=== PATIENT | female | born 1960 | race Caucasian/White ===

== ENCOUNTER 2016-08-24 23:44 | Observation (INO) | payer BC ==
--- NOTE | ~2016-08-24 | HP ---
Unit #: [id number] #: [id number] Patient: NATALIIA PLAZA [id number] [facility] [address] [place], [place] [address] [id number] I MR#: [id number] NAME: NATALIIA PLAZA. ROOM: 333 Age: 56 Sex: F Admission Date: 08/25/2016 : 1960 Attending Physician: Nick Garcia M.D. Primary Care Physician: No Primary Care Physician HISTORY AND PHYSICAL CHIEF COMPLAINT Fatigue and short of breath. HISTORY OF PRESENT ILLNESS This is a 56-year-old female who has no previous cardiac history. She came yesterday because the last few days she is feeling fatigued and not feeling good. She took her blood pressure at home and blood pressure was 220 systolic. In the emergency room she also has a high blood pressure and she felt short of breath. She was given hydralazine 10 mg IV and Norvasc 10 mg p.o. Right now her blood pressure is 143. She is feeling better but has some headache. She denies orthopnea, PND, palpitations, or syncope. PAST MEDICAL HISTORY Positive for thyroidectomy. ALLERGIES None. MEDICATIONS None. FAMILY HISTORY Negative for premature CAD or hypertension. SOCIAL HISTORY She smokes a pack a day. She does not drink. REVIEW OF SYSTEMS All of the 12 point systems were reviewed and they are negative. PHYSICAL EXAMINATION GENERAL: She looks comfortable, not in any kind of distress. VITAL SIGNS: Heart rate is 80 right now, blood pressure 146/96. She is breathing at a respiratory rate of 16. HEENT: Eyes - conjunctivae normal. Pupils round and reactive. Oral mucosa is moist. No central cyanosis. NECK: No thyromegaly. Carotid upstroke is normal, no bruits. JVD is not elevated. CHEST: She has a few crackles at the bases. CARDIAC: She has a mild left parasternal lift. There is an S3 at the apex. No murmur. ABDOMEN: Soft, liver and spleen not enlarged. Abdominal aorta not Unit #: [id number] #: [id number] Patient: NATALIIA PLAZA palpable and guaiac test not indicated. EXTREMITIES: No pedal edema. 2+ bilateral femoral and dorsalis pedis pulses. There is no clubbing. SKIN: No rash or abnormal pigmentation. NEUROLOGIC: She is oriented x3, mood is normal, muscle tone in all extremities normal. DIAGNOSTIC STUDIES CARDIOLOGY STUDIES: EKG showing sinus rhythm with possible right atrial enlargement and left ventricular hypertrophy. ASSESSMENT 1. Malignant hypertension. 2. Acute congestive heart failure, which is probably related to her hypertension. 3. (1) EKG with possible with possible right atrial enlargement. 4. History of smoking. PLAN I will continue with Norvasc 10 mg p.o. daily. I will give a small dose of p.o. potassium because the potassium is low. I will also add lisinopril 10 mg p.o. daily and give a small dose of Lasix. I will do echo to assess her LV size and function. Probably she can go home later this afternoon or tomorrow morning. Dictated by Crystal Goff/dylan TD: 08/25/2016 11:31 JOB #: [id number] HISTORY AND PHYSICAL Page 1 of 1 X Nadeem Maldonado MD HISTORY AND PHYSICAL
--- NOTE | ~2016-08-24 | EKG ---
PATIENT: NATALIIA PLAZA UNIT #: [id number] Ventricular Rate: 101 BPM Atrial Rate: 101 BPM P-R Interval: 164 ms QRS Duration: 96 ms Q-T Interval: 388 ms QTC Calculation(Bezet): 503 ms P [place]: 58 degrees Calculated R [place]: 11 degrees Calculated T [place]: 37 degrees Diagnosis Line: Sinus tachycardia Diagnosis Line: Right atrial enlargement Diagnosis Line: Minimal voltage criteria for LVH, may be normal Diagnosis Line: variant Diagnosis Line: Borderline ECG Diagnosis Line: No previous ECGs available Diagnosis Line: Confirmed by CINDY MAY MD ([id number]) on Diagnosis Line: 08/25/2016 10:20:34 PM INTERPRETING MD: KIRSTIN
--- NOTE | ~2016-08-24 | CR72 ---
[facility] A Service of [facility] RADIOLOGY TEXT RESULTS PATIENT: NATALIIA PLAZA LOCATION: [facility] [id number] : [birth year] UNIT #: [id number] AGE: [address]: Nick Garcia MD SEX: F ORDER DR: [id number] [facility] [address] [place], [place] [address] [id number] I MR#: [id number] Acc #: [id number] NAME: NATALIIA PLAZA : 1960 SEX: F STUDY DATE/TIME: 08/24/2016 22:04 UNIT: [facility] ROOM: [id number] STUDY DESCRIPTION: CR Chest Single View Portable Attending Physician: Nick Garcia M.D. Ordering Physician: Willard Pérez M.D. Primary Care Physician: Primary Care Physician No MEDICAL IMAGING REPORT This report is preliminary unless electronic signature is present EXAM Chest x-ray, 08/24/2016 HISTORY 56-year-old female in the ED complaining of 2-day history of weakness and shortness of air. Hypertension is noted. TECHNIQUE AP portable upright chest x-ray. FINDINGS Mild cardiomegaly. Pulmonary vascularity is normal. The lungs appear clear. No visible pulmonary infiltrate or pleural effusion. IMPRESSION No active disease. Mild cardiomegaly. Dictated by... Kenny Schaefer M.D. THIS IS AN ELECTRONICALLY VERIFIED REPORT Kenny Schaefer M.D. at 08/25/2016 6:00 AM Yuli TD: 08/25/2016 02:42 JOB #: [id number] MEDICAL IMAGING REPORT Page 1 of 1 COPY
[2016-08-24 22:41] LABS: POC - CKMB 1.9 ng/mL (0.0-7.9); POC - TROPONIN <0.05 ng/mL (<=0.05)
[2016-08-24 22:48] LABS: BASOPHIL# 0.1 X10e3 (0-0.3); EOSINOPHIL# 0.4 X10e3 (0-0.7); EOSINOPHIL% 3.6 % (0.0-7.0); HEMATOCRIT 44.2 % (35.0-45.0); HEMOGLOBIN 14.6 gm/dL (12.0-16.0); LYMPHOCYTE# 2.1 X10e3 (1.0-3.5); LYMPHOCYTE% 19.3 % (17.0-45.0); MEAN CELL VOLUME 91.1 FL (83-96); MEAN CORPUSCULAR HGB CONC 32.9 g/dL (30-36); MONOCYTE# 0.7 X10e3 (0-1.0); MONOCYTE% 6.5 % (3.0-12.0); NEUTROPHIL# 7.5 X10e3 (1.5-7.1); NEUTROPHIL% 69.6 % (40-75); PLATELET COUNT 330 X10e3 (140-420); RED BLOOD COUNT 4.86 X10e (3.90-5.30); RED CELL DISTRIBUTION WIDTH 13.4 % (11.0-15.5); WHITE BLOOD COUNT 10.8 X10e3 (4.0-10.5)
[2016-08-24 22:49] LABS: DIFF IND NO
[2016-08-24 23:11] LABS: ALBUMIN SERUM 4.4 g/dL (3.5-5.0); BILIRUBIN, DIRECT 0.1 mg/dL (0.0-0.2); BILIRUBIN,INDIRECT 0.4 mg/dL (0.0-0.9); BILIRUBIN,TOTAL 0.5 mg/dL (0.2-2.0); BUN/CREATININE RATIO 13.63; CALCIUM SERUM 9.7 mg/dL (8.4-10.2); CREATININE SERUM 1.1 mg/dL (0.6-1.4); GLOM FILT RATE Estimated 56.5 mL/min (>60); POTASSIUM 3.5 mmol/L (3.5-5.1); PROTEIN TOTAL SERUM 7.7 g/dL (6.0-8.3)
[2016-08-25] MEDS ORDERED: ADVIL200 M2 PO (09:46)
[2016-08-25] MEDS ORDERED: ACETAMINOPHEN325 MG PO (16:01)
[2016-08-25] MEDS ORDERED: NORVASC10 MG PO (16:01)
[2016-08-25] MEDS ORDERED: LISINOPRIL10 MG PO (16:02)
== END 2016-08-25 16:10 | disposition home or self-care (01) | DRG 305 ==
LOC: CED 23:44 → CEDOF 08-25 00:31 → C3A PCU 08-25 08:10
PROVIDERS: Emergency Medicine
DX: I10 Essential (primary) hypertension (principal); Z90.89 Acquired absence of other organs; F17.210 Nicotine dependence, cigarettes, uncomplicated; Z79.899 Other long term (current) drug therapy; Z79.1 Long term (current) use of non-steroidal anti-inflammatories (NSAID)
CPT/HCPCS: 36415; 71010; 80048; 80076; 82553; 83880; 84443; 84484; 85025; 93005; 93306; 96374; 96375; 99285; G0378; J0360; J1940